=== PATIENT | male | born 1940 ===

== ENCOUNTER 2020-06-25 02:43 | Inpatient (IN) ==
[2020-06-25] MEDS ORDERED: Diazepam INJ CARPUJECT 5 MG/ML IM ONE (02:52)
[2020-06-25 03:34] LABS: ABS Lymphocytes 1.1 10^3/ul (1.0-4.8); ABS Monocytes 0.4 10^3/ul (0-0.8); ABS Neutrophils 5.2 10^3/ul (1.5-7.7); Eosinophil % 0.6 %; Hematocrit 42 % (42-52); Hemoglobin 14.5 g/dL (14.0-18.0); Lymphocyte % 16.1 %; Mean Corpuscular HGB Conc 35 g/dL (31-36); Mean Corpuscular Hemoglobin 30 pg (27-31); Mean Corpuscular Volume 88 fL (80-94); Mean Platelet Volume 7.9 fL (7.4-10.4); Platelet Count 234 10^3/uL (150-450); Red Cell Distribution Width 14 % (10-15); White Blood Count 6.8 10^3/uL (3.5-10.8)
[2020-06-25 03:48] LABS: Activated Partial Thrombo Time 31.1 seconds (26.0-38.0); INR 1.02 (0.82-1.09)
[2020-06-25 03:50] LABS: Albumin 3.9 g/dL (3.2-5.2); Albumin/Globulin Ratio 1.1 (1-3); BUN/Creatinine Ratio 27.1 (8-20); Calcium 9.1 mg/dL (8.6-10.3); EGFR Non-African American 108.2 (>60); Globulin 3.4 g/dL (2-4); Indirect Bilirubin 0.4 mg/dL (0.3-1.0); Magnesium 1.8 mg/dL (1.9-2.7); Potassium 4.7 mmol/L (3.5-5.0); Total Bilirubin 0.5 mg/dL (0.2-1.0); Total Protein 7.3 g/dL (6.4-8.9)
[2020-06-25 03:52] LABS: Troponin I 0.01 ng/mL (<0.03)
[2020-06-25] MEDS: Lactated Ringers 1000 ml BAG 1,000 ML IV SCH ×2 (04:04→16:59)
[2020-06-25 04:10] LABS: Ferritin 558.6 ng/mL (24-336)
[2020-06-25] MEDS ORDERED: Magnesium Sulfate 2 gm BAG 2 GM/50 ML BAG IVPB ONE (04:36)
[2020-06-25] MEDS ORDERED: Dextrose 50% Syringe 50 ml 25 GM/50 ML SYRINGE IV PUSH PRN (06:28)
[2020-06-25] MEDS: Aspirin EC 81 mg TAB.EC (enteric coated) PO SCH ×2 (10:27→12:58)
[2020-06-25] MEDS: Enoxaparin 40 MG/0.4 ML SYR SUBCUT SCH (10:28)
[2020-06-25] MEDS: Insulin GLARGINE 100 un/ml 10 ml VIAL SUBCUT SCH (20:43)
[2020-06-26] MEDS: Lactated Ringers 1000 ml BAG 1,000 ML IV SCH ×2 (05:37→21:18)
[2020-06-26 06:09] LABS: ABS Lymphocytes 0.8 10^3/ul (1.0-4.8); ABS Monocytes 0.3 10^3/ul (0-0.8); ABS Neutrophils 3.7 10^3/ul (1.5-7.7); Hematocrit 38 % (42-52); Hemoglobin 12.6 g/dL (14.0-18.0); Lymphocyte % 15.9 %; Mean Corpuscular HGB Conc 34 g/dL (31-36); Mean Corpuscular Hemoglobin 29 pg (27-31); Mean Corpuscular Volume 87 fL (80-94); Mean Platelet Volume 7.9 fL (7.4-10.4); Platelet Count 206 10^3/uL (150-450); Red Blood Count 4.35 10^6 /uL (4.18-5.48); Red Cell Distribution Width 14 % (10-15); White Blood Count 4.8 10^3/uL (3.5-10.8)
[2020-06-26 06:25] LABS: BUN/Creatinine Ratio 21.9 (8-20); Calcium 8.1 mg/dL (8.6-10.3); EGFR African American 145.2 (>60); Potassium 4.4 mmol/L (3.5-5.0)
[2020-06-26] MEDS: Enoxaparin 40 MG/0.4 ML SYR SUBCUT SCH (09:29)
[2020-06-26] MEDS: Aspirin EC 81 mg TAB.EC (enteric coated) PO SCH (09:31)
[2020-06-26] MEDS: Insulin GLARGINE 100 un/ml 10 ml VIAL SUBCUT SCH (20:46)
[2020-06-27] MEDS: Aspirin EC 81 mg TAB.EC (enteric coated) PO SCH (11:13)
[2020-06-27] MEDS: Enoxaparin 40 MG/0.4 ML SYR SUBCUT SCH (11:14)
[2020-06-27] MEDS: Lactated Ringers 1000 ml BAG 1,000 ML IV SCH (11:18)
[2020-06-27] MEDS: Insulin GLARGINE 100 un/ml 10 ml VIAL SUBCUT SCH (20:37)
[2020-06-27] MEDS ORDERED: Lorazepam PYXIS KEY PRN (22:12)
[2020-06-27] MEDS ORDERED: LORazepam 2 mg VIAL 1 ml IV PUSH ONE (22:12)
[2020-06-28] MEDS: Lactated Ringers 1000 ml BAG 1,000 ML IV SCH (02:29)
[2020-06-28] MEDS ORDERED: LORazepam 2 mg VIAL 1 ml IV PUSH PRN (04:50)
[2020-06-28] MEDS ORDERED: LORazepam 2 mg VIAL 1 ml ONE (04:57)
[2020-06-28] MEDS: Aspirin EC 81 mg TAB.EC (enteric coated) PO SCH (08:10)
[2020-06-28] MEDS: Enoxaparin 40 MG/0.4 ML SYR SUBCUT SCH (08:12)
[2020-06-28] MEDS: Insulin GLARGINE 100 un/ml 10 ml VIAL SUBCUT SCH (22:32)
[2020-06-29] MEDS: Enoxaparin 40 MG/0.4 ML SYR SUBCUT SCH (10:19)
[2020-06-29] MEDS: Aspirin EC 81 mg TAB.EC (enteric coated) PO SCH (10:19)
[2020-06-29] MEDS: Insulin GLARGINE 100 un/ml 10 ml VIAL SUBCUT SCH (20:26)
[2020-06-30] MEDS: Aspirin EC 81 mg TAB.EC (enteric coated) PO SCH ×2 (09:14→10:27)
[2020-06-30] MEDS: Enoxaparin 40 MG/0.4 ML SYR SUBCUT SCH (12:52)
[2020-06-30] MEDS: Insulin GLARGINE 100 un/ml 10 ml VIAL SUBCUT SCH (20:38)
[2020-07-01] MEDS: Enoxaparin 40 MG/0.4 ML SYR SUBCUT SCH (09:09)
[2020-07-01] MEDS: Aspirin EC 81 mg TAB.EC (enteric coated) PO SCH (09:09)
[2020-07-01] MEDS: Insulin GLARGINE 100 un/ml 10 ml VIAL SUBCUT SCH (21:36)
[2020-07-02] MEDS: Enoxaparin 40 MG/0.4 ML SYR SUBCUT SCH (09:31)
[2020-07-02] MEDS: Aspirin EC 81 mg TAB.EC (enteric coated) PO SCH (09:32)
[2020-07-02] MEDS: Insulin GLARGINE 100 un/ml 10 ml VIAL SUBCUT SCH (21:17)
[2020-07-03] MEDS: Enoxaparin 40 MG/0.4 ML SYR SUBCUT SCH (08:48)
[2020-07-03] MEDS: Aspirin EC 81 mg TAB.EC (enteric coated) PO SCH (08:52)
[2020-07-03] MEDS: Insulin GLARGINE 100 un/ml 10 ml VIAL SUBCUT SCH (21:34)
[2020-07-03] MEDS ORDERED: LORazepam 2 mg VIAL 1 ml IM ONE (21:54)
[2020-07-03] MEDS ORDERED: Lorazepam PYXIS KEY PRN (21:54)
[2020-07-04] MEDS: Enoxaparin 40 MG/0.4 ML SYR SUBCUT SCH (08:44)
[2020-07-04] MEDS: Aspirin EC 81 mg TAB.EC (enteric coated) PO SCH (08:47)
[2020-07-04] MEDS: Insulin GLARGINE 100 un/ml 10 ml VIAL SUBCUT SCH (21:12)
[2020-07-05] MEDS ORDERED: LORazepam 2 mg VIAL 1 ml IM ONE (00:24)
[2020-07-05] MEDS ORDERED: Lorazepam PYXIS KEY PRN (00:24)
[2020-07-05] MEDS ORDERED: Lorazepam PYXIS KEY ONE (00:30)
[2020-07-05] MEDS ORDERED: LORazepam 2 mg VIAL 1 ml ONE (00:31)
[2020-07-05] MEDS: Aspirin EC 81 mg TAB.EC (enteric coated) PO SCH (08:35)
[2020-07-05] MEDS: Enoxaparin 40 MG/0.4 ML SYR SUBCUT SCH (08:35)
[2020-07-05 09:41] VITALS: BP 127/63
== END 2020-07-05 12:20 | DRG 178 ==
LOC: ED 02:43 → MED 05:47
PROVIDERS: ADMIT Hospitalist; ATTEND Student in an Organized Health Care Education/Training Program